=== PATIENT | male | born 1960 | race American Indian/Alaskan Native ===

== ENCOUNTER 2017-02-16 08:33 | Emergency (ER) | payer SELFPAY ==
--- NOTE | 2017-02-16 10:14 | XRay Report ---
AP CHEST: HISTORY: Syncope AP view of the chest demonstrates a normal mediastinal and cardiac contour with clear lungs and normal bony and soft tissue structures. IMPRESSION: Unremarkable AP chest.
[2017-02-16 10:23] LABS: Basophils % (Auto) 1.4 % (0.0-1.8); Hematocrit 45.3 % (35.5-45.6); Mean Corpuscular HGB Conc 33 % (32-34); Mean Corpuscular Hemoglobin 28 pg (28-32); Mean Corpuscular Volume 85 fl (84-94); Platelet Count 156 K/mm3 (140-440); Red Blood Count 5.34 M/mm3 (3.65-5.03); Red Cell Distribution Width 15.4 % (13.2-15.2); White Blood Count 5.2 K/mm3 (4.5-11.0)
[2017-02-16 10:28] LABS: Urine Drugs of Abuse Note Disclamer
[2017-02-16 10:33] LABS: INR 0.94 (0.87-1.13)
[2017-02-16 10:36] LABS: Creatine Kinase MB 1.5 ng/mL (0.0-4.0)
[2017-02-16 10:39] LABS: Anion Gap 19 mmol/L; BUN/Creatinine Ratio 15; Blood Urea Nitrogen 15 mg/dL (9-20); Calcium 8.5 mg/dL (8.4-10.2); Carbon Dioxide 22 mmol/L (22-30); Chloride 105.1 mmol/L (98-107); Creatine Kinase 103 units/L (55-170); Glucose 91 mg/dL (75-100); Potassium 3.9 mmol/L (3.6-5.0); Sodium 142 mmol/L (137-145)
[2017-02-16 10:40] LABS: Alanine Aminotransferase 12 units/L (7-56); Albumin 3.3 g/dL (3.9-5); Alkaline Phosphatase 82 units/L (35-129); Bilirubin,Direct < 0.2 mg/dL (0-0.2); Total Protein 6.5 g/dL (6.3-8.2)
[2017-02-16 10:41] LABS: Bilirubin,Urine NEG (Negative); Blood,Urine SM (Negative); Ketones,Urine NEG (Negative); Leukocyte Esterase,Urine NEG (Negative); Mucus,Urine 1+ /HPF; Nitrite,Urine NEG (Negative); Protein,Urine <15 mg/dL mg/dL (Negative); Urobilinogen,Urine < 2.0 mg/dL (<2.0)
[2017-02-16] MEDS ORDERED: APRESOLINE IV ONE ×3 (10:44→14:15)
[2017-02-16] MEDS ORDERED: XYLOCAINE 1% 20 mL INFILTRATI ONE (10:54)
--- NOTE | 2017-02-16 10:54 | Emergency Department Report ---
ED General Adult HPI - General Chief complaint: Syncope Stated complaint: SYNCOPE/CHEST PAIN / HBP Time Seen by Provider: 02/16/17 09:22 Source: patient Mode of arrival: Stretcher Limitations: No Limitations - History of Present Illness Initial comments: Patient complains of dizziness and feeling like he might pass out. He denied vertigo. He did not have an actual loss of consciousness. He states he caught himself on the way down. He is somewhat vague about his symptoms. He totally denies the presence of chest pain or shortness of breath. He denies any focal neurological change difficulty with speech or walking. He's had normal orientation. He apparently is noncompliant with his blood pressure medication. He also failed to mention his recent cocaine abuse. He was found to be hypertensive on arrival. The patient denies dizziness now. The patient had an admission for chest pain in May of the current year. Negative CTA of the chest at that time. -: Sudden (fairly acute onset he states prior to arrival ) Improves with: none Worsens with: none Associated Symptoms: denies other symptoms Treatments Prior to Arrival: none - Related Data Previous Rx's Medication Instructions Recorded Last Taken Type amLODIPine [Norvasc] 10 mg PO DAILY #30 tab 02/16/17 Unknown Rx cloNIDine [Catapres] 0.1 mg PO BID #60 tablet 02/16/17 Unknown Rx Allergies Allergy/AdvReac Type Severity Reaction Status Date / Time No Known Allergies Allergy Verified 01/07/14 21:29 ED Review of Systems ROS: Stated complaint: SYNCOPE/CHEST PAIN / HBP Other details as noted in HPI Constitutional: other (near syncopal episode). denies: chills, fever Eyes: denies: eye pain, eye discharge, vision change ENT: denies: ear pain, throat pain Respiratory: denies: cough, shortness of breath, wheezing Cardiovascular: denies: chest pain, palpitations Endocrine: no symptoms reported Gastrointestinal: denies: abdominal pain, nausea, diarrhea Genitourinary: denies: urgency, dysuria Musculoskeletal: denies: back pain, joint swelling, arthralgia Skin: denies: rash, lesions Neurological: denies: headache, weakness, numbness, paresthesias, confusion, abnormal gait, vertigo Psychiatric: denies: anxiety, depression Hematological/Lymphatic: denies: easy bleeding, easy bruising ED Past Medical Hx - Past Medical History Hx Hypertension: Yes Hx Congestive Heart Failure: No Hx Diabetes: No Hx Asthma: No Hx COPD: No Hx HIV: No - Surgical History Past Surgical History?: No - Social History Smoking Status: Current Every Day Smoker Substance Use Type: Alcohol - Medications Home Medications: Home Medications Medication Instructions Recorded Confirmed Last Taken Type amLODIPine [Norvasc] 10 mg PO DAILY #30 tab 02/16/17 Unknown Rx cloNIDine [Catapres] 0.1 mg PO BID #60 tablet 02/16/17 Unknown Rx ED Physical Exam - General Limitations: No Limitations General appearance: alert, in no apparent distress - Head Head exam: Present: atraumatic, normocephalic - Eye Eye exam: Present: normal appearance, PERRL, EOMI. Absent: scleral icterus - ENT ENT exam: Present: mucous membranes moist - Neck Neck exam: Present: normal inspection - Respiratory Respiratory exam: Present: normal lung sounds bilaterally. Absent: respiratory distress - Cardiovascular Cardiovascular Exam: Present: regular rate, normal rhythm. Absent: systolic murmur, diastolic murmur, rubs, gallop - GI/Abdominal GI/Abdominal exam: Present: soft, normal bowel sounds. Absent: distended, tenderness, guarding, rebound, rigid - Rectal Rectal exam: Present: deferred - Extremities Exam Extremities exam: Present: normal inspection - Back Exam Back exam: Present: normal inspection - Neurological Exam Neurological exam: Present: alert, oriented X3, CN II-XII intact, other ( testing was normal. Visual paulson by confrontation. No focal deficit was found. His speech was normal. There is no inattention. There is no drift.). Absent: motor sensory deficit - Psychiatric Psychiatric exam: Present: normal affect, normal mood - Skin Skin exam: Present: warm, dry, intact, normal color. Absent: rash ED Course Vital Signs 02/16/17 02/16/17 02/16/17 08:46 10:24 10:56 Temperature 98.0 F Pulse Rate 52 L 50 L 52 L Respiratory 18 16 Rate Blood Pressure 147/102 184/107 Blood Pressure 172/110 [Left] O2 Sat by Pulse 97 99 Oximetry 02/16/17 02/16/17 02/16/17 11:18 12:04 13:19 Temperature Pulse Rate 52 L 52 L 52 L Respiratory 16 Rate Blood Pressure Blood Pressure 183/107 179/120 156/93 [Left] O2 Sat by Pulse 100 Oximetry 02/16/17 02/16/17 14:29 15:22 Temperature Pulse Rate 52 L 52 L Respiratory Rate Blood Pressure 144/86 135/90 Blood Pressure 144/86 [Left] O2 Sat by Pulse Oximetry - Reevaluation(s) Reevaluation #1: Patient was treated for his hypertension. His 12-lead EKG revealed a sinus bradycardia and possible old inferior zone. There were inverted or biphasic T waves in V4-6. CT of his head was negative. He was referred to the hospitalist for further evaluation/treatment and disposition. 02/16/17 16:02 ED Medical Decision Making - Lab Data Result diagrams: 02/16/17 09:53 02/16/17 09:53 Laboratory Results - last 24 hr 02/16/17 02/16/17 02/16/17 09:53 09:53 09:53 WBC 5.2 RBC 5.34 H Hgb 15.0 Hct 45.3 MCV 85 MCH 28 MCHC 33 RDW 15.4 H Plt Count 156 Lymph % (Auto) 24.5 [place] % (Auto) 12.2 H Eos % (Auto) 2.0 Baso % (Auto) 1.4 Lymph # 1.3 [place] # 0.6 Eos # 0.1 Baso # 0.1 Seg Neutrophils % 59.9 Seg Neutrophils # 3.1 PT 13.0 INR 0.94 Sodium 142 Potassium 3.9 Chloride 105.1 Carbon Dioxide 22 Anion Gap 19 BUN 15 Creatinine 1.0 Estimated GFR > 60 BUN/Creatinine Ratio 15 Glucose 91 Lactic Acid Calcium 8.5 Magnesium 2.10 Total Bilirubin Direct Bilirubin AST ALT Alkaline Phosphatase Total Creatine Kinase 103 CK-MB (CK-2) 1.5 CK-MB (CK-2) Rel Index 1.4 Troponin T < 0.010 NT-Pro-B Natriuret Pep Total Protein Albumin Albumin/Globulin Ratio Urine Bilirubin Urine RBC (Auto) U Epithel Cells (Auto) 02/16/17 02/16/17 02/16/17 09:53 09:53 10:23 WBC RBC Hgb Hct MCV MCH MCHC RDW Plt Count Lymph % (Auto) [place] % (Auto) Eos % (Auto) Baso % (Auto) Lymph # [place] # Eos # Baso # Seg Neutrophils % Seg Neutrophils # PT INR Sodium Potassium Chloride Carbon Dioxide Anion Gap BUN Creatinine Estimated GFR BUN/Creatinine Ratio Glucose Lactic Acid 1.60 Calcium Magnesium Total Bilirubin 0.30 Direct Bilirubin < 0.2 AST 13 ALT 12 Alkaline Phosphatase 82 Total Creatine Kinase CK-MB (CK-2) CK-MB (CK-2) Rel Index Troponin T NT-Pro-B Natriuret Pep 73.59 Total Protein 6.5 Albumin 3.3 L Albumin/Globulin Ratio 1.0 Urine Bilirubin Neg Urine RBC (Auto) 2.0 U Epithel Cells (Auto) 1.0 - EKG Data -: EKG Interpreted by Me EKG shows normal: sinus rhythm Rate: bradycardia - EKG Data Interpretation: other (old inferior Q's. Biphasic T waves in the anterior leads. Poor R-wave progression.) - Radiology Data Radiology results: report reviewed interpreted by me: CT of the head and x-ray of the chest revealed no acute process. Critical care attestation.: If time is entered above; I have spent that time in minutes in the direct care of this critically ill patient, excluding procedure time. ED Disposition Clinical Impression: Near syncope, Hypertension, uncontrolled, Cocaine abuse Disposition: OP ADMIT IP TO THIS HOSP Is pt being admited?: Yes Does the pt Need Aspirin: Yes Condition: Stable Instructions: Hypertension (ED) Prescriptions: amLODIPine [Norvasc] 10 mg PO DAILY #30 tab cloNIDine [Catapres] 0.1 mg PO BID #60 tablet Referrals: PRIMARY CARE, [Primary Care Provider] - 3-5 Days Time of Disposition: 14:00
--- NOTE | 2017-02-16 11:38 | Cat Scan Report ---
CT HEAD WITHOUT CONTRAST: HISTORY: Headache. TECHNIQUE: Sequential 2.5mm CT images. COMPARISON: 01/25/16. FINDINGS: Cerebral Parenchyma: Within normal limits. Cerebellum: Within normal limits. Brainstem: Within normal limits. Ventricles: Normal. Sella: Normal. Extra-axial spaces: Normal. Basal Cisterns: Normal. Intracranial Hemorrhage: None. Midline Shift: None. Calvarium: Normal. Sinuses: Normal. Mastoid Air Cells: Normal. Visualized Orbits: Normal. IMPRESSION: Cranial CT scan within normal limits.
--- NOTE | 2017-02-16 12:52 | History and Physical Report ---
History of Present Illness Chief complaint: My chest hurt History of present illness: 55 YO male with HTN, Nicotine Dependence, Obesity presents to ED for evaluation. pt states that he has been experiencing chest pain for the past day , with worsening symptoms over the past 2 hours. Pain is 4/10, substernal, nonraditing, not exacerbated with exertion, or relieved with rest. Pt denies difficulty braething, hemoptysis, prolonged travel/immobility, individual/ family history of DVT/PE, or recent ill contacts. Pt also states that he was awakened from sleep at 0400hrs with the pain in his chest. Pt got up to urinate and fell down. Pt denies trauma. Pt underwent cardiac enzymes, ekg, telemetry monitoring, as well as d dimer which was unremarkable for acute ischemia. Pt medically optimized and subsequently discharged home and instructed to f/u pcp 1wk, cardiology prn for further care. CT head negative for acute findings. Past History Past Medical History: hypertension Past Surgical History: No surgical history, Other (reviewed) Social history: smoking Family history: hypertension Medications and Allergies Allergies Allergy/AdvReac Type Severity Reaction Status Date / Time No Known Allergies Allergy Verified 01/07/14 21:29 Home Medications Medication Instructions Recorded Confirmed Last Taken Type amLODIPine [Norvasc] 10 mg PO DAILY #30 tab 02/16/17 Unknown Rx cloNIDine [Catapres] 0.1 mg PO BID #60 tablet 02/16/17 Unknown Rx Review of Systems Constitutional: no weight loss, no weight gain, no fever Ears, nose, mouth and throat: no ear pain, no ear discharge, no tinnitis, no decreased hearing, no nose pain Cardiovascular: chest pain, lightheadedness, no orthopnea, no palpitations, no rapid/irregular heart beat, no edema, no syncope Respiratory: no cough, no cough with sputum, no excessive sputum, no hemoptysis Gastrointestinal: no nausea, no vomiting, no diarrhea, no constipation Genitourinary Male: no hematuria, no flank pain, no discharge, no urinary frequency Rectal: no pain, no incontinence, no bleeding Musculoskeletal: no neck stiffness, no neck pain, no shooting arm pain Integumentary: no rash, no pruritis, no redness, no sores Neurological: no transient paralysis, no weakness, no parathesias, no numbness Psychiatric: no anxiety, no memory loss, no change in sleep habits, no sleep disturbances Endocrine: no cold intolerance, no heat intolerance, no polyphagia, no excessive thirst Hematologic/Lymphatic: no easy bruising, no easy bleeding Allergic/Immunologic: no urticaria, no allergic rhinitis, no wheezing Exam - Constitutional Vitals: Temp Pulse Resp BP Pulse Ox 98.0 F 52 L 16 179/120 100 02/16/17 08:46 02/16/17 12:04 02/16/17 11:18 02/16/17 12:04 02/16/17 11:18 General appearance: Present: obese - EENT Eyes: Present: PERRL ENT: hearing intact, clear oral mucosa - Neck Neck: Present: supple, normal ROM - Respiratory Respiratory effort: normal Respiratory: bilateral: CTA - Cardiovascular Heart Sounds: Present: S1 & S2. Absent: rub, click - Extremities Extremities: pulses symmetrical, No edema Peripheral Pulses: within normal limits - Abdominal General gastrointestinal: Present: soft, non-tender, non-distended, normal bowel sounds Male genitourinary: Present: normal - Integumentary Integumentary: Present: clear, warm, dry - Musculoskeletal Musculoskeletal: gait normal, strength equal bilaterally - Psychiatric Psychiatric: appropriate mood/affect, intact judgment & insight - Neurologic Neurologic: CNII-XII intact, moves all extremities Results - Labs CBC & Chem 7: 02/16/17 09:53 02/16/17 09:53 Labs: Abnormal lab results 02/16/17 02/16/17 Range/Units 09:53 09:53 RBC 5.34 H (3.65-5.03) M/mm3 RDW 15.4 H (13.2-15.2) % [place] % (Auto) 12.2 H (0.0-7.3) % Albumin 3.3 L (3.9-5) g/dL Assessment and Plan - Patient Problems (1) Atypical chest pain Status: Acute Plan to address problem: Cardiac workup negative. Pt acknowledges noncompliance with home medication, and that main reason for coming to hospital was for medication refill. (2) Dizziness Status: Acute Plan to address problem: CT head, unremarkable.
[2017-02-16] MEDS: CATAPRES PO ONE ×2 (14:29→15:37)
[2017-02-16 18:52] VITALS: BP 136/73
== END 2017-02-16 18:51 | disposition home or self-care (01) ==
LOC: ED 08:33
DX: I10 Essential (primary) hypertension (principal); F14.10 Cocaine abuse, uncomplicated; F17.200 Nicotine dependence, unspecified, uncomplicated
CPT/HCPCS: 36415; 70450; 71010; 80048; 80074; 80307; 81001; 82140; 82550; 82553; 83735; 83880; 84484; 85025; 85379; 85610; 86850; 86900; 86901; 87040; 93005; 93010; 96374; 96376; 99285; J0360

== ENCOUNTER 2017-07-04 12:41 | Inpatient (IN) | payer SELFPAY ==
[2017-07-04 15:54] LABS: INR 0.93 (0.87-1.13)
[2017-07-04 15:55] LABS: Partial Thromboplastin Time 28.3 Sec. (24.2-36.6)
[2017-07-04 15:56] LABS: Basophils # (Auto) 0.1 K/mm3 (0.0-0.1); Basophils % (Auto) 1.1 % (0.0-1.8); Eosinophils # (Auto) 0.1 K/mm3 (0.0-0.4); Eosinophils % (Auto) 1.4 % (0.0-4.3); Hematocrit 47.4 % (35.5-45.6); Hemoglobin 15.2 gm/dl (11.8-15.2); Lymphocytes # (Auto) 1.8 K/mm3 (1.2-5.4); Lymphocytes % (Auto) 30.8 % (13.4-35.0); Mean Corpuscular HGB Conc 32 % (32-34); Mean Corpuscular Hemoglobin 28 pg (28-32); Mean Corpuscular Volume 86 fl (84-94); Monocytes # (Auto) 0.5 K/mm3 (0.0-0.8); Monocytes % (Auto) 8.8 % (0.0-7.3); Platelet Count 173 K/mm3 (140-440); Red Blood Count 5.48 M/mm3 (3.65-5.03); Red Cell Distribution Width 15.4 % (13.2-15.2)
[2017-07-04 16:06] LABS: Blood Urea Nitrogen TNR mg/dL (9-20)
[2017-07-04 16:07] LABS: Alanine Aminotransferase TNR units/L (7-56); BUN/Creatinine Ratio TNR; Calcium TNR mg/dL (8.4-10.2)
[2017-07-04 16:08] LABS: Albumin TNR g/dL (3.9-5)
[2017-07-04 16:09] LABS: Hemolysis Index TNR
--- NOTE | 2017-07-04 16:43 | XRay Report ---
FINAL REPORT EXAM: XR CHEST 1V AP HISTORY: tachycardia TECHNIQUE: Single, portable chest x-ray. PRIORS: None. FINDINGS: Patient rotated to the right. Cardiac and mediastinal silhouette within normal limits. Lungs are normally expanded, with rounded opacity projected over right 1st rib end. No significant vascular congestion, focal consolidation or apparent pneumothorax. Degenerative change in the thoracic spine. IMPRESSION: 1. Findings which may represent summation artifact projected over right 1st rib end, although parenchymal opacities/nodule not completely excluded. Comparison with previous chest x-ray may help document stability. Otherwise, correlation with nonemergent CT chest may help in further evaluation, as clinically indicated. 2. Otherwise, unremarkable.
[2017-07-04] MEDS ORDERED: CATAPRES PO ONE ×2 (16:55→23:50)
[2017-07-04 17:03] LABS: Alanine Aminotransferase 12 units/L (7-56); Albumin 3.8 g/dL (3.9-5); BUN/Creatinine Ratio 17; Blood Urea Nitrogen 15 mg/dL (9-20); Calcium 8.9 mg/dL (8.4-10.2); Hemolysis Index 7
[2017-07-04] MEDS ORDERED: APRESOLINE IV ONE ×2 (17:08→17:42)
[2017-07-04] MEDS ORDERED: NACL 0.9% 1000 ML 0 ML ONE (17:40)
[2017-07-04 18:29] LABS: Bilirubin,Urine NEG (Negative); Blood,Urine NEG (Negative); Color,Urine Straw (Yellow); Mucus,Urine FEW /HPF; Protein,Urine <15 mg/dL mg/dL (Negative); Urobilinogen,Urine < 2.0 mg/dL (<2.0)
[2017-07-04 18:37] LABS: Amphetamine Screen,Urine PRESUMPTIVE NEGATIVE; Benzodiazepines Screen,Urine PRESUMPTIVE NEGATIVE; Methadone Screen,Urine PRESUMPTIVE NEGATIVE; Opiate Screen,Urine PRESUMPTIVE NEGATIVE
[2017-07-04] MEDS ORDERED: NACL ONE (18:48)
[2017-07-04 18:51] LABS: Cannabinoid Screen,Urine PRESUMPTIVE POSITIVE; Cocaine Screen,Urine PRESUMPTIVE POSITIVE
--- NOTE | 2017-07-04 19:07 | Emergency Department Report ---
ED Syncope HPI - General Chief Complaint: High BP Stated Complaint: SYNCOPE/HYPERTENSION Time Seen by Provider: 07/04/17 15:18 Source: patient - History of Present Illness Timing/Prior Episodes: single episode today, remote history Precipitating Factors: Positive: other (patient reports that he knows his blood pressure is high and that causes him to faint. Reports prior episode approx 8 months ago. Reports that he has been out of his BP medication for 5 months. Reports no PCP or insurance ) Loss of Consciousness: brief (seconds) Current Symptoms: back to normal. denies: blurred vision, chest pain, diaphoresis, dizziness, headache, injury, lightheadedness, loss of bladder control, loss of bowel control, motionless, nausea, pale, shallow/rapid breathing, weak/absent pulse, weakness - Related Data Allergies/Adverse Reactions: Allergies No Known Allergies Allergy (Verified 07/04/17 13:18) Home Medications: Ambulatory Orders No Known Home Medications [No Reported Home Medications] 07/04/17 ED Review of Systems ROS: Stated complaint: SYNCOPE/HYPERTENSION Other details as noted in HPI Other: GENERAL: No weight change, fatigue, weakness, fever, chills, or night sweats SKIN: No changes in skin or hair, no itching, no rashes, no jaundice HEAD: No trauma, headache, or visual changes EYES: No blurriness, tearing, itching, acute visual loss, conjunctival discoloration, or scleral icterus CARDIAC: Reports syncope. No new murmur, chest pain, palpitations, dyspnea on exertion, orthopnea, PND, or edema RESPIRATORY: No shortness of breath, wheeze, cough, sputum production, hemoptysis, pneumonia, asthma, bronchitis, or emphysema GI: No change in appetite, nausea, vomiting, dysphagia, change in bowel frequency, diarrhea, constipation, bleeding, hematemesis, melena, hematochezia, or abdominal pain URINARY: No frequency, urgency, polyuria, dysuria, hematuria, or incontinence MUSCULOSKELETAL: No muscle weakness, joint stiffness, decrease in range of motion, redness, swelling NEUROLOGIC: No loss of sensation, numbness, tingling, tremors, weakness, paralysis, seizures HEMATOLOGIC: No anemia, easy bruising, bleeding, petechiae, or purpura ENDOCRINE: No hot or cold intolerance, sweating, polyuria, polydipsia or, polyphagia no thyroid problems PSYCHIATRIC: No change in mood, no anxiety, no depression ED Past Medical Hx - Past Medical History Hx Hypertension: Yes Hx Congestive Heart Failure: No Hx Diabetes: No Hx Asthma: No Hx COPD: No Hx HIV: No - Surgical History Past Surgical History?: No - Social History Smoking Status: Current Every Day Smoker Substance Use Type: Marijuana - Medications Home Medications: Home Medications Medication Instructions Recorded Confirmed Last Taken Type No Known Home Medications [No 07/04/17 07/04/17 Unknown History Reported Home Medications] ED Physical Exam - General Limitations: No Limitations - Other Other exam information: GENERAL: Patient in no acute distress HEAD: Normocephalic, atraumatic EYES: PERRLA, EOM intact, no scleral icterus, visual paulson and acuity wnl NOSE: No tenderness, discharge, sinus tenderness MOUTH: No erythema, bleeding, exudate HEART: Regular rate and rhythm, no murmur, S1-S2 are auscultated, pulses are symmetric LUNGS: bilateral breath sounds. No wheezing, rales, rhonchi ABDOMEN: Normal bowel sounds, no tenderness, no rebound, no guarding, no masses , no CVA tenderness MUSCULOSKELETAL: Normal joint range of motion, no redness, no swelling, no tenderness NEUROLOGIC: GCS 15, Alert and Oriented x3, Cranial nerves intact, normal sensation, normal strength, normal gait, no cerebellar deficit PSYCHIATRIC: No homicidal or suicidal ideation, no anxiety, no depression, no hallucinations SKIN: Skin is warm and dry, no wounds, no rashes ED Course Vital Signs 07/04/17 07/04/17 07/04/17 13:18 15:08 15:11 Temperature 97.6 F Pulse Rate 55 L 57 L Respiratory 18 16 16 Rate Blood Pressure 191/118 191/113 O2 Sat by Pulse 98 99 999 H Oximetry 07/04/17 07/04/17 16:01 17:15 Temperature Pulse Rate 59 L Respiratory 10 L Rate Blood Pressure 184/109 203/119 O2 Sat by Pulse 100 Oximetry ED Medical Decision Making - Lab Data Result diagrams: 07/04/17 15:30 07/04/17 16:36 Laboratory Results - last 24 hr 07/04/17 07/04/17 07/04/17 15:30 15:30 15:30 WBC 5.8 RBC 5.48 H Hgb 15.2 Hct 47.4 H MCV 86 MCH 28 MCHC 32 RDW 15.4 H Plt Count 173 Lymph % (Auto) 30.8 [place] % (Auto) 8.8 H Eos % (Auto) 1.4 Baso % (Auto) 1.1 Lymph # 1.8 [place] # 0.5 Eos # 0.1 Baso # 0.1 Seg Neutrophils % 57.9 Seg Neutrophils # 3.4 PT 12.9 INR 0.93 APTT 28.3 Sodium Potassium Chloride Carbon Dioxide Anion Gap BUN Creatinine Estimated GFR BUN/Creatinine Ratio Glucose Calcium Total Bilirubin AST ALT Alkaline Phosphatase Total Creatine Kinase Troponin T < 0.010 NT-Pro-B Natriuret Pep 95.73 Total Protein Albumin Albumin/Globulin Ratio Urine Color Urine Turbidity Urine pH Ur Specific [place] Urine Protein Urine Glucose (UA) Urine Ketones Urine Blood Urine Nitrite Urine Bilirubin Urine Urobilinogen Ur Leukocyte Esterase Urine WBC (Auto) Urine RBC (Auto) U Epithel Cells (Auto) Urine Mucus Urine Opiates Screen Urine Methadone Screen Ur Barbiturates Screen Ur Phencyclidine Scrn Ur Amphetamines Screen U Benzodiazepines Scrn Urine Cocaine Screen U Marijuana (THC) Screen Drugs of Abuse Note 07/04/17 07/04/17 07/04/17 15:30 16:36 17:53 WBC RBC Hgb Hct MCV MCH MCHC RDW Plt Count Lymph % (Auto) [place] % (Auto) Eos % (Auto) Baso % (Auto) Lymph # [place] # Eos # Baso # Seg Neutrophils % Seg Neutrophils # PT INR APTT Sodium TNR 140 Potassium TNR 4.0 Chloride TNR 103.3 Carbon Dioxide TNR 23 Anion Gap TNR 18 BUN TNR 15 Creatinine TNR 0.9 Estimated GFR TNR > 60 BUN/Creatinine Ratio TNR 17 Glucose TNR 87 Calcium TNR 8.9 Total Bilirubin TNR 0.40 AST TNR 11 ALT TNR 12 Alkaline Phosphatase TNR 100 Total Creatine Kinase TNR 98 Troponin T NT-Pro-B Natriuret Pep Total Protein TNR 6.7 Albumin TNR 3.8 L Albumin/Globulin Ratio TNR 1.3 Urine Color Straw Urine Turbidity Clear Urine pH 6.0 Ur Specific [place] 1.012 Urine Protein <15 mg/dl Urine Glucose (UA) Neg Urine Ketones Neg Urine Blood Neg Urine Nitrite Neg Urine Bilirubin Neg Urine Urobilinogen < 2.0 Ur Leukocyte Esterase Neg Urine WBC (Auto) 1.0 Urine RBC (Auto) 3.0 U Epithel Cells (Auto) 1.0 Urine Mucus Few Urine Opiates Screen Urine Methadone Screen Ur Barbiturates Screen Ur Phencyclidine Scrn Ur Amphetamines Screen U Benzodiazepines Scrn Urine Cocaine Screen U Marijuana (THC) Screen Drugs of Abuse Note 07/04/17 17:53 WBC RBC Hgb Hct MCV MCH MCHC RDW Plt Count Lymph % (Auto) [place] % (Auto) Eos % (Auto) Baso % (Auto) Lymph # [place] # Eos # Baso # Seg Neutrophils % Seg Neutrophils # PT INR APTT Sodium Potassium Chloride Carbon Dioxide Anion Gap BUN Creatinine Estimated GFR BUN/Creatinine Ratio Glucose Calcium Total Bilirubin AST ALT Alkaline Phosphatase Total Creatine Kinase Troponin T NT-Pro-B Natriuret Pep Total Protein Albumin Albumin/Globulin Ratio Urine Color Urine Turbidity Urine pH Ur Specific [place] Urine Protein Urine Glucose (UA) Urine Ketones Urine Blood Urine Nitrite Urine Bilirubin Urine Urobilinogen Ur Leukocyte Esterase Urine WBC (Auto) Urine RBC (Auto) U Epithel Cells (Auto) Urine Mucus Urine Opiates Screen Presumptive negative Urine Methadone Screen Presumptive negative Ur Barbiturates Screen Presumptive negative Ur Phencyclidine Scrn Presumptive negative Ur Amphetamines Screen Presumptive negative U Benzodiazepines Scrn Presumptive negative Urine Cocaine Screen Presumptive positive U Marijuana (THC) Screen Presumptive positive Drugs of Abuse Note Disclamer - EKG Data When compared to previous EKG there are: no significant change (sinus bradycardia HR 54 no block) - Radiology Data Radiology results: report reviewed - Medical Decision Making Patient comfortable. Updated with results. Plan admit for further evaluation. Hospitalists accepts admission. Request 100 mg Losartan po. Will follow up on CT scans Critical Care Time: Yes Critical care time in (mins) excluding proc time.: 42 Critical care attestation.: If time is entered above; I have spent that time in minutes in the direct care of this critically ill patient, excluding procedure time. ED Disposition Clinical Impression: Hypertensive emergency, Syncope and collapse Disposition: OP ADMIT IP TO THIS HOSP Is pt being admited?: Yes Condition: Stable Instructions: Hypertension (ED), Syncope (ED) Referrals: PRIMARY CARE, [Primary Care Provider] - 3-5 Days Time of Disposition: 19:15
[2017-07-04] MEDS ORDERED: COZAAR PO ONE (19:08)
[2017-07-04] MEDS ORDERED: SODIUM CHLORIDE FLUSH SYRINGE 10 ML IV PRN ×2 (19:16→21:01)
[2017-07-04] MEDS ORDERED: ZOFRAN IV PRN ×2 (19:16→21:01)
[2017-07-04] MEDS ORDERED: TYLENOL PO PRN ×2 (19:16→21:01)
[2017-07-04] MEDS ORDERED: CARDENE 50 MG in NACL 0.9% 250ML 230 ML IV SCH (20:00)
--- NOTE | 2017-07-04 20:37 | Cat Scan Report ---
FINAL REPORT EXAM: CT HEAD/BRAIN WO CON HISTORY: syncope TECHNIQUE: Noncontrast CT axial images of the brain. PRIORS: None. FINDINGS: No parenchymal mass, mass effect, hemorrhage, midline shift or hydrocephalus. No evidence of acute cortical infarct. No abnormal, extra-axial fluid or air collection. Osseous calvarium grossly intact. IMPRESSION: 1. No acute intracranial findings.
--- NOTE | 2017-07-04 20:44 | Cat Scan Report ---
FINAL REPORT EXAM: CT ANGIO CHEST HISTORY: syncope TECHNIQUE: Spiral CTA of the chest after the uneventful administration of IV contrast. Multiplanar reformations. 100 mL Omnipaque IV. PRIORS: None. FINDINGS: Chest: Respiratory motion artifact limits examination somewhat. The main and bilateral proximal pulmonary arteries are normally opacified without endoluminal filling defects. No apparent aneurysm, pseudoaneurysm or aortic dissection. No significant lymph node enlargement or axillary adenopathy. Lungs show no discrete parenchymal mass, focal consolidation or pleural effusions. No apparent pneumothorax. Visualized upper abdomen grossly unremarkable. Diffuse degenerative change in the thoracic spine. IMPRESSION: 1. No evidence of large vessel or central pulmonary emboli. No acute consolidation.
[2017-07-04] MEDS ORDERED: PERCOCET 5/325 PO PRN (21:01)
[2017-07-04] MEDS ORDERED: AMBIEN PO PRN (21:01)
[2017-07-04] MEDS ORDERED: MORPHINE IV PRN (21:01)
--- NOTE | 2017-07-04 21:01 | History and Physical Report ---
History of Present Illness Date of examination: 07/04/17 Date of admission: 07/04/2017 Chief complaint: Chief complaint: Shelton dizzy and nearly fell down this morning. Did not pass out History of present illness: History of Present Illness: 56-year-old -[place] male with history of hypertension who's been very noncompliant for the last 6 months with his medications comes in for feeling dizzy which made him nearly fell down. Did not pass out. No chest pain. No loss of consciousness. No diaphoresis no palpitations. Patient does not remember the name of his medications. No exacerbating or relieving factors No recent travel Patient had 1 episode of syncope 8 months ago. Attributes to not taking his antihypertensives Past Medical History Hypertension: Yes - Surgical History Past Surgical History?: No Social History Smoking Status: Current Every Day Smoker Substance Use Type: Marijuana Family history: Htn Medications Home Medications: Home Medications Medication Instructions Recorded Confirmed Last Taken Type No Known Home Medications [No 07/04/17 07/04/17 Unknown History Reported Home Medications] Review of Systems ROS: Stated complaint: SYNCOPE/HYPERTENSION Other details as noted in HPI Other: GENERAL: No weight change, fatigue, weakness, fever, chills, or night sweats SKIN: No changes in skin or hair, no itching, no rashes, no jaundice HEAD: No trauma, headache, or visual changes EYES: No blurriness, tearing, itching, acute visual loss, conjunctival discoloration, or scleral icterus CARDIAC: Reports syncope. No new murmur, chest pain, palpitations, dyspnea on exertion, orthopnea, PND, or edema RESPIRATORY: No shortness of breath, wheeze, cough, sputum production, hemoptysis, pneumonia, asthma, bronchitis, or emphysema GI: No change in appetite, nausea, vomiting, dysphagia, change in bowel frequency, diarrhea, constipation, bleeding, hematemesis, melena, hematochezia, or abdominal pain URINARY: No frequency, urgency, polyuria, dysuria, hematuria, or incontinence MUSCULOSKELETAL: No muscle weakness, joint stiffness, decrease in range of motion, redness, swelling NEUROLOGIC: No loss of sensation, numbness, tingling, tremors, weakness, paralysis, seizures HEMATOLOGIC: No anemia, easy bruising, bleeding, petechiae, or purpura ENDOCRINE: No hot or cold intolerance, sweating, polyuria, polydipsia or, polyphagia no thyroid problems PSYCHIATRIC: No change in mood, no anxiety, no depression Medications and Allergies Allergies Allergy/AdvReac Type Severity Reaction Status Date / Time No Known Allergies Allergy Verified 07/04/17 13:18 Home Medications Medication Instructions Recorded Confirmed Last Taken Type No Known Home Medications [No 07/04/17 07/04/17 Unknown History Reported Home Medications] Active Meds: Active Medications Acetaminophen (Tylenol) 650 mg PO Q4H PRN PRN Reason: Pain MILD(1-3)/Fever >100.5/MENDOZA Nicardipine HCl 50 mg/ Sodium (Chloride) 250 mls @ 25 mls/hr IV TITR BOBBI; Protocol Ondansetron HCl (Zofran) 4 mg IV Q8H PRN PRN Reason: Nausea And Vomiting Sodium Chloride (Sodium Chloride Flush Syringe 10 Ml) 10 ml IV BID BOBBI Sodium Chloride (Sodium Chloride Flush Syringe 10 Ml) 10 ml IV PRN PRN PRN Reason: LINE FLUSH Exam - Physical Exam Narrative exam: Lying in bed comfortably - Constitutional Vitals: Temp Pulse Resp BP Pulse Ox 97.9 F 62 10 L 178/101 100 07/04/17 20:37 07/04/17 20:35 07/04/17 16:01 07/04/17 20:35 07/04/17 16:01 General appearance: Present: no acute distress, well-nourished - EENT Eyes: Present: PERRL ENT: hearing intact, clear oral mucosa - Neck Neck: Present: supple, normal ROM - Respiratory Respiratory effort: normal Respiratory: bilateral: CTA - Cardiovascular Heart rate: 54 Rhythm: regular Heart Sounds: Present: S1 & S2. Absent: rub, click - Extremities Extremities: no ischemia, pulses intact, pulses symmetrical, No edema Peripheral Pulses: within normal limits - Abdominal General gastrointestinal: Present: soft, non-tender, non-distended, normal bowel sounds Male genitourinary: Present: normal - Integumentary Integumentary: Present: clear, warm, dry - Musculoskeletal Musculoskeletal: gait normal, strength equal bilaterally - Psychiatric Psychiatric: appropriate mood/affect, intact judgment & insight - Neurologic Neurologic: CNII-XII intact, moves all extremities - Allied Health Allied health notes reviewed: nursing, case management Results - Labs CBC & Chem 7: 07/04/17 15:30 07/04/17 16:36 Labs: Laboratory Last Values WBC 5.8 K/mm3 (4.5-11.0) 07/04/17 15:30 RBC 5.48 M/mm3 (3.65-5.03) H 07/04/17 15:30 Hgb 15.2 gm/dl (11.8-15.2) 07/04/17 15:30 Hct 47.4 % (35.5-45.6) H 07/04/17 15:30 MCV 86 fl (84-94) 07/04/17 15:30 MCH 28 pg (28-32) 07/04/17 15:30 MCHC 32 % (32-34) 07/04/17 15:30 RDW 15.4 % (13.2-15.2) H 07/04/17 15:30 Plt Count 173 K/mm3 (140-440) 07/04/17 15:30 Lymph % (Auto) 30.8 % (13.4-35.0) 07/04/17 15:30 Citrus % (Auto) 8.8 % (0.0-7.3) H 07/04/17 15:30 Eos % (Auto) 1.4 % (0.0-4.3) 07/04/17 15:30 Baso % (Auto) 1.1 % (0.0-1.8) 07/04/17 15:30 Lymph # 1.8 K/mm3 (1.2-5.4) 07/04/17 15:30 Citrus # 0.5 K/mm3 (0.0-0.8) 07/04/17 15:30 Eos # 0.1 K/mm3 (0.0-0.4) 07/04/17 15:30 Baso # 0.1 K/mm3 (0.0-0.1) 07/04/17 15:30 Seg Neutrophils % 57.9 % (40.0-70.0) 07/04/17 15:30 Seg Neutrophils # 3.4 K/mm3 (1.8-7.7) 07/04/17 15:30 PT 12.9 Sec. (12.2-14.9) 07/04/17 15:30 INR 0.93 (0.87-1.13) 07/04/17 15:30 APTT 28.3 Sec. (24.2-36.6) 07/04/17 15:30 Sodium 140 mmol/L (137-145) 07/04/17 16:36 Potassium 4.0 mmol/L (3.6-5.0) 07/04/17 16:36 Chloride 103.3 mmol/L (98-107) 07/04/17 16:36 Carbon Dioxide 23 mmol/L (22-30) 07/04/17 16:36 Anion Gap 18 mmol/L 07/04/17 16:36 BUN 15 mg/dL (9-20) 07/04/17 16:36 Creatinine 0.9 mg/dL (0.8-1.5) 07/04/17 16:36 Estimated GFR > 60 ml/min 07/04/17 16:36 BUN/Creatinine Ratio 17 % 07/04/17 16:36 Glucose 87 mg/dL (75-100) 07/04/17 16:36 Calcium 8.9 mg/dL (8.4-10.2) 07/04/17 16:36 Total Bilirubin 0.40 mg/dL (0.1-1.2) 07/04/17 16:36 AST 11 units/L (5-40) 07/04/17 16:36 ALT 12 units/L (7-56) 07/04/17 16:36 Alkaline Phosphatase 100 units/L (35-129) 07/04/17 16:36 Total Creatine Kinase 98 units/L (55-170) 07/04/17 16:36 Troponin T < 0.010 ng/mL (0.00-0.029) 07/04/17 15:30 NT-Pro-B Natriuret Pep 95.73 pg/mL (0-900) 07/04/17 15:30 Total Protein 6.7 g/dL (6.3-8.2) 07/04/17 16:36 Albumin 3.8 g/dL (3.9-5) L 07/04/17 16:36 Albumin/Globulin Ratio 1.3 % 07/04/17 16:36 Urine Color Straw (Yellow) 07/04/17 17:53 Urine Turbidity Clear (Clear) 07/04/17 17:53 Urine pH 6.0 (5.0-7.0) 07/04/17 17:53 Ur Specific [place] 1.012 (1.003-1.030) 07/04/17 17:53 Urine Protein <15 mg/dl mg/dL (Negative) 07/04/17 17:53 Urine Glucose (UA) Neg mg/dL (Negative) 07/04/17 17:53 Urine Ketones Neg mg/dL (Negative) 07/04/17 17:53 Urine Blood Neg (Negative) 07/04/17 17:53 Urine Nitrite Neg (Negative) 07/04/17 17:53 Urine Bilirubin Neg (Negative) 07/04/17 17:53 Urine Urobilinogen < 2.0 mg/dL (<2.0) 07/04/17 17:53 Ur Leukocyte Esterase Neg (Negative) 07/04/17 17:53 Urine WBC (Auto) 1.0 /HPF (0.0-6.0) 07/04/17 17:53 Urine RBC (Auto) 3.0 /HPF (0.0-6.0) 07/04/17 17:53 U Epithel Cells (Auto) 1.0 /HPF (0-13.0) 07/04/17 17:53 Urine Mucus Few /HPF 07/04/17 17:53 Urine Opiates Screen Presumptive negative 07/04/17 17:53 Urine Methadone Screen Presumptive negative 07/04/17 17:53 Ur Barbiturates Screen Presumptive negative 07/04/17 17:53 Ur Phencyclidine Scrn Presumptive negative 07/04/17 17:53 Ur Amphetamines Screen Presumptive negative 07/04/17 17:53 U Benzodiazepines Scrn Presumptive negative 07/04/17 17:53 Urine Cocaine Screen Presumptive positive 07/04/17 17:53 U Marijuana (THC) Screen Presumptive positive 07/04/17 17:53 Drugs of Abuse Note Disclamer 07/04/17 17:53 - Imaging and Cardiology EKG: report reviewed (EKG sinus bradycardia heart rate of 54/m left atrial enlargement and nonspecific T-wave changes no LVH. EKG interpreted by me) Assessment and Plan Advance Directives: Yes (full code) VTE prophylaxis?: Chemical Plan of care discussed with patient/family: Yes - Patient Problems (1) Hypertensive emergency Current Visit: Yes Status: Acute Plan to address problem: Patient was started on IV hydralazine 10 mg every hour as when necessary and also patient is initiated on losartan 100 mg daily amlodipine 10 mg daily and hydralazine 50 mg every 8. Depending on the response of his blood pressure may decrease the hydralazine to 25 mg every 8 at the time of discharge. Patient counseled about compliance. Patient is very noncompliant Patient may get stroke if it continues like this and also going to heart failure and chronic kidney failure. (2) Near syncope Current Visit: Yes Status: Acute Plan to address problem: As per the ER physician patient had syncope. But on further history taking patient had near syncope.. Patient has said that he felt dizzy and nearly fell down but no passed out. And he also attributed to his high blood pressure and noncompliance. And there was no chest pain. Given his age and hypertension will get a Lexiscan carotid duplex scan. Also patient advised to stop smoking (3) Nicotine dependence Current Visit: Yes Status: Chronic Qualifiers: Nicotine product type: cigarettes Plan to address problem: patient smokes about half a pack a day NicoDerm patch ordered Patient counseled for 10 minutes (4) Cocaine dependence Current Visit: Yes Status: Chronic Qualifiers: Substance use status: uncomplicated Qualified Code(s): F14.20 - Cocaine dependence, uncomplicated Plan to address problem: patient counseled (5) Tetrahydrocannabinol (THC) use disorder, moderate, dependence Current Visit: Yes Status: Chronic Plan to address problem: Patient counseled (6) DVT prophylaxis Current Visit: No Status: Acute Plan to address problem: Heparin 5000 every 12
[2017-07-04] MEDS ORDERED: APRESOLINE IV PRN (21:12)
[2017-07-04] MEDS ORDERED: HABITROL TD ONE (21:56)
[2017-07-04] MEDS ORDERED: SODIUM CHLORIDE FLUSH SYRINGE 10 ML IV SCH (22:00)
[2017-07-04] MEDS ORDERED: PEPCID ONE (22:35)
[2017-07-04] MEDS ORDERED: NORVASC ONE (22:36)
[2017-07-04] MEDS ORDERED: HEPARIN ONE (22:36)
[2017-07-04] MEDS ORDERED: APRESOLINE ONE (22:36)
[2017-07-04] MEDS: NORVASC PO SCH (22:44)
[2017-07-04] MEDS: APRESOLINE PO SCH (22:44)
[2017-07-04] MEDS: HEPARIN SUB-Q SCH (22:44)
[2017-07-04] MEDS: SODIUM CHLORIDE FLUSH SYRINGE 10 ML IV SCH (22:45)
[2017-07-04] MEDS: PEPCID PO SCH (22:45)
[2017-07-04] MEDS ORDERED: CATAPRES ONE (23:52)
[2017-07-05] MEDS ORDERED: NORCO 5/325 ONE (00:49)
[2017-07-05] MEDS ORDERED: NORCO 5/325 PO ONE (00:50)
[2017-07-05 05:50] LABS: Basophils # (Auto) 0.1 K/mm3 (0.0-0.1); Basophils % (Auto) 1.2 % (0.0-1.8); Eosinophils # (Auto) 0.1 K/mm3 (0.0-0.4); Eosinophils % (Auto) 2.1 % (0.0-4.3); Hemoglobin 15.3 gm/dl (11.8-15.2); Lymphocytes # (Auto) 1.9 K/mm3 (1.2-5.4); Lymphocytes % (Auto) 35.4 % (13.4-35.0); Mean Corpuscular HGB Conc 33 % (32-34); Mean Corpuscular Hemoglobin 28 pg (28-32); Mean Corpuscular Volume 83 fl (84-94); Monocytes # (Auto) 0.5 K/mm3 (0.0-0.8); Platelet Count 182 K/mm3 (140-440); Red Blood Count 5.52 M/mm3 (3.65-5.03); Red Cell Distribution Width 15.1 % (13.2-15.2)
[2017-07-05 06:03] LABS: BUN/Creatinine Ratio 17; Blood Urea Nitrogen 15 mg/dL (9-20); Calcium 8.5 mg/dL (8.4-10.2); Hemolysis Index 4
[2017-07-05] MEDS: APRESOLINE PO SCH ×2 (06:03→14:58)
[2017-07-05] MEDS ORDERED: LEXISCAN IV ONE ×2 (08:24→08:27)
[2017-07-05] MEDS: NORVASC PO SCH (11:10)
[2017-07-05] MEDS: HEPARIN SUB-Q SCH (11:10)
[2017-07-05] MEDS: PEPCID PO SCH (11:11)
[2017-07-05] MEDS: SODIUM CHLORIDE FLUSH SYRINGE 10 ML IV SCH (11:11)
[2017-07-05 11:12] VITALS: BP 124/79
--- NOTE | 2017-07-05 13:55 | Discharge Summary ---
Providers - Providers Date of Admission: 07/04/17 19:16 Date of discharge: 07/05/17 Attending physician: PROMISE DAUGHERTY Primary care physician: [employer] Hospitalization Condition: Stable Hospital course: Patient is a 56 yo man with hypertension off bp medication because no insurance and no pcp who pw dizzness, after smoking and drinking. He was found to have cocaine/thc on uds. He was admitted due to uncontrolled bp. -Dizziness, vasomotor reaction -hypertension urgency resolved -polysubstance abuse: counseling done stress test negative I gave him the number for [facility]. Disposition: DC-01 TO HOME OR SELFCARE Time spent for discharge: 35 mintues Core Measure Documentation - Palliative Care Palliative Care/ Comfort Measures: Not Applicable - Core Measures Any of the following diagnoses?: none - VTE Discharge Requirements Deep Vein Thrombosis/Pulmonary Embolism Present on Admission: No Has pt received <5 days of overlap therapy or INR<2.0: No Anticoagulant overlap therapy prescribed at discharge: No Contraindication No Overlap Therapy order at DC: Not Indicated Exam - Physical Exam Narrative exam: GEN: WDWN, NAD, Awake, Alert, Orientated HEENT: NCAT, EOMI, PERRL, OP Clear NECK: supple, no adenopathy, no thyromegaly, no JVD CVS/HEART: RRR, normal S1S2, pulses present bilaterally CHEST/LUNGS: CTA B, Symmetrical chest expansion, good air entry bilaterally GI/Abdomen: soft, NTND, good bowel sounds, no guarding or rebound /Bladder: no suprapubic tenderness, no CVA or paraspinal tenderness EXT/Skin: no c/c/e, no obvious rash MSK: FROM x 4 Neuro: CN 2-12 grossly intact, no new focal deficits Psych: calm - Constitutional Vitals: Temp Pulse Resp BP Pulse Ox 98.2 F 63 18 124/79 93 07/05/17 02:38 07/05/17 11:10 07/05/17 02:38 07/05/17 11:10 07/05/17 02:38 Plan Activity: other (no strenous activities until cleared by PCP) Diet: low salt Special Instructions: smoking cessation Follow up with: [facility] [Provider Group] - 7 Days Prescriptions: amLODIPine [Norvasc] 10 mg PO QDAY #30 tablet Hydralazine HCl 50 mg PO TID #90 tab
== END 2017-07-05 15:10 | disposition home or self-care (01) | DRG 305 ==
LOC: ED 12:41 → 4A 19:16
PROVIDERS: ADMIT Internal Medicine; ATTEND Internal Medicine
DX: I16.1 Hypertensive emergency (principal); F14.20 Cocaine dependence, uncomplicated; R55 Syncope and collapse; I10 Essential (primary) hypertension; F19.10 Other psychoactive substance abuse, uncomplicated; F17.200 Nicotine dependence, unspecified, uncomplicated
CPT/HCPCS: 36415; 70450; 71045; 71275; 78452; 80048; 80053; 80307; 81001; 82550; 83036; 83880; 84484; 85025; 85610; 85730; 93005; 93010; 93017; 93880; A9502; J0360; J1644; J2785; J7030; J7050; Q9967